=== PATIENT | male | born 1960 | race Caucasian/White ===

== ENCOUNTER 2016-10-19 13:03 | Day surgery (SDC) | payer OTHER ==
[~2016-10-19] VITALS: Ht 182.9 cm; Wt 95.3 kg
[~2016-10-19 13:03] MED LIST: BP MED; NEXIUM40 MG PO; OCUFLOX OPHTH DR5 ML OS
[2016-10-19 13:29] VITALS: BP 131/91; PULSE 94; TEMP 97.7
[2016-10-19] MEDS ORDERED: COZAAR100 MG PO (13:38)
[2016-10-19] MEDS ORDERED: NIACIN FLUSH F400 MG PO (13:39)
[2016-10-19] MEDS ORDERED: ASPIRIN E.C. 8181 MG PO (13:39)
[2016-10-19] MEDS ORDERED: NEXIUM 24HR20 M1 PO (13:40)
[2016-10-19] MEDS ORDERED: PRILOTC PO (13:41)
[2016-10-19 14:40] VITALS: BP 108/75; PULSE 84; TEMP 97.7
[2016-10-19 14:55] VITALS: BP 118/89; PULSE 83
[2016-10-19 15:10] VITALS: BP 130/97; PULSE 82
== END 2016-10-19 15:24 | disposition home or self-care (01) ==
LOC: SDCO 13:03
DX: K21.0 Gastro-esophageal reflux disease with esophagitis (principal); R12 Heartburn; J02.9 Acute pharyngitis, unspecified; R11.10 Vomiting, unspecified; I10 Essential (primary) hypertension
CPT/HCPCS: OP; J2250; J3010; J7030

== ENCOUNTER 2017-09-03 09:48 | Outpatient (RCR) | payer OTHER ==
[~2017-09-03 09:48] MED LIST changes: +ASPIRIN 81M81 MG/TA2 PO; +ASPIRIN E.C. 8181 MG PO; +CIALIS20 MG PO; +COZAAR100 MG PO; +NEXIUM 24HR20 M1 PO; +NIACIN FLUSH F400 MG PO; +PRILOTC PO
== END 2017-12-02 | disposition home or self-care (01) ==
LOC: WSST
DX: S06.360D Traumatic hemorrhage of cerebrum, unspecified, without loss of consciousness, subsequent encounter (principal)

== ENCOUNTER → 2017-11-01 | Outpatient (CLI) | payer OTHER | LOC: COL.RAD 11:00 | DX: S06.5X0A Traumatic subdural hemorrhage without loss of consciousness, initial encounter (principal) ==